=== PATIENT | female | born 1990 | race Caucasian/White ===

== ENCOUNTER 2024-04-18 09:42 | Outpatient (CLI) | payer OTHER, SELFPAY | END 2024-04-18 09:43 | disposition home or self-care (01) | PROVIDERS: Visit Provider Physician Assistant | DX: Z13.1 Encounter for screening for diabetes mellitus (principal); Z13.6 Encounter for screening for cardiovascular disorders | CPT/HCPCS: 80061; 82947 ==

== ENCOUNTER 2025-01-28 17:48 | Emergency (ER) | payer OTHER, SELFPAY ==
--- OUTSIDE RECORDS SUMMARY | 2025-01-28 17:49 | XMS_ITS | Clinical Summary ---
Author Organization [facility] Address [address], [place] [address] Care Team Providers Care Dental Equipment Technician Name Role Phone Unavailable Primary Care Provider Unavailabl e Source Comments You are receiving this document as you are listed as the primary care provider,follow-up provider, or the patient has been referred to you for consultation.This is in compliance with the Medicare and[facility] E[facility] Incentive Program,which states Providers who transition their patient to another setting of careor provider of care or refers their patient to another provider of care shouldprovide summary care record for each transition of care or referral. [facility] Allergies No known active allergies Medications Dextromethorphan-g uaiFENesin (ROBITUSSIN DM OR) A ctive Active Problems No known active problems Social History Tobacco Use Types Packs/Day Years Used Date Smoking Tobacco: Never Smokeless Tobacco: Never Comments Unknown Sex and Gender Information Value Date Recorded Sex Assigned at Not on file Legal Sex Female 10:16 AM CDT Gender Identity Not on file Sexual Orientation Not on file Last Filed Vital Signs Vital Sign Reading Time Taken Comments Blood Pressure 110/66 12/25/2020 10:34 AM CDT Pulse 115 12/25/2020 10:34 AM CDT Temperature 36.7 C (98.1 F) 12/25/2020 10:34 AM CDT Respiratory Rate 20 12/25/2020 10:34 AM CDT Oxygen Saturation 100% 12/25/2020 10:34 AM CDT Inhaled Oxygen Concentration - - Weight - - Height - - Body Mass Index - - Plan of Treatment Health Maintenance Due Date Last Done Comments Cervical Cancer Screening Due 1991 Hep C Screening (Preventive Services) 1991 HIV Screening (Preventive Services) 2007 Adult Preventive Visit 2009 DTaP/Tdap/Td Vaccine (1 - Tdap) 2010 HepB Vaccine (1) 2010 HPV Vaccine (1 - 3-dose SCDM series) 2018 COVID-19 Vaccine (1 - 2023-2 5 season) 2025 Influenza Vaccine (#1) 2025 Zoster/Shingles Vaccine (1 of 2) 2041 HepA Vaccine Aged Out No longer eligi ble based on patient's age to complete this topic Hib Vaccine Aged Out No longer eligi ble based on patient's age to complete this topic IPV (Polio) Vaccine Aged Out No longe r eligible based on patient's age to complete this topic MCV4 Vaccine Aged Out No longer eligi ble based on patient's age to complete this topic Meningococcal B Vaccine Aged Out No l onger eligible based on patient's age to complete this topic Pneumococcal Vaccine Aged Out No long er eligible based on patient's age to complete this topic Insurance [facility] [place] [id number]
--- OUTSIDE RECORDS SUMMARY | 2025-01-28 17:49 | XMS_ITS | Clinical Summary ---
Author Organization [facility] Address [address] [place] [id number] Care Team Providers Care Header Operator Name Role Phone No Ref-Primary, Physician Primary Care Provider Allergies No known active allergies Social History Tobacco Use Types Packs/Day Years Used Date Smoking Tobacco: Never Assessed Adolescent Education Answer Date Record ed Getting School Help Needed Not on file 02/14 Comments Unknown Sex and Gender Information Value Date Recorded Sex Assigned at Not on file Legal Sex Female 12:59 PM CDT Gender Identity Not on file Sexual Orientation Not on file Last Filed Vital Signs Vital Sign Reading Time Taken Comments Blood Pressure 110/68 12/25/2020 5:00 PM CDT Pulse 98 12/25/2020 1:07 PM CDT Temperature 36.9 C (98.4 F) 12/25/2020 1:07 PM CDT Respiratory Rate 16 12/25/2020 1:07 PM CDT Oxygen Saturation 100% 12/25/2020 5:07 PM CDT Inhaled Oxygen Concentration - - Weight 70 kg (154 lb 5.2 oz) 12/25/2020 1:07 PM CDT Height - - Body Mass Index - - Plan of Treatment Not on file Insurance [employer] OUT OF STATE Care Teams Header Operator Relationship Specialty Start Date End Date No Ref-Primary, Physician PCP - General 12/25/20
[2025-01-28 18:18] VITALS: BP 122/82; PULSE 90; RESP 20; TEMP 36.6; O2SAT 98; BMI 20.1
--- NOTE | 2025-01-28 19:41 | ED.GENADULT ---
HPI - General Adult General Chief complaint: Abdominal Pain Stated complaint: chest pain and chills Time Seen by Provider: 01/28/25 19:40 History of Present Illness HPI narrative: Started feeling ill with chills and chest pain for the last couple of hours, right sided shoulder pain. Feeling like she needs to take deep breathes. In the last ten minutes hands have been feeling tingling and wanting to curl up. Also feels nauseated . Has been feeling fatigued. 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 35-year-old woman presenting to the emergency department with concern of chest pain. After eating admittedly too many homemade cookies and cookie dough began to have some chest discomfort which became more burning and spread in the chest and then also some pain began the right shoulder -- indicates deep in the shoulder. Abdominal pain does not seem to be the primary symptom. Did feel chilled. Subsequently began to feel tingling in cheeks jaw hands feet. Hands were curling up a little bit. Right now primary symptom is nausea. Deep breathing to try to deal with. Has been struggling with good deal of stress lately. Fatigued due to not sleeping. Was otherwise prior to this in usual state of health. Did not have cough or cold symptoms. No rashes. Later does recall that had similar symptoms though without the chest discomfort last week. Related Data Home Medications ?Medication ?Instructions ?Recorded ?Confirmed multivitamin (Daily Multi-Vitamin 1 tab PO QAM 01/19/24 01/19/24 tablet) Allergies Allergy/AdvReac Type Severity Reaction Status Date / Time No Known Allergies Allergy Unknown Verified 01/28/25 18:25 Review of Systems Status of ROS: Reports: 6 or more systems reviewed and unremarkable except as noted in History and below [facility] Medical History Uterovaginal prolapse ?N81.4 - Uterovaginal prolapse, unspecified (ICD-10) Normal spontaneous vaginal delivery ?O80 - Encounter for full-term uncomplicated delivery (ICD-10) Family History Maternal Grandfather Heart disease Father Hodgkin lymphoma Aunt FH: mental illness Mother Osteoporosis Social History Narrative: [id number] mom 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 Nonsmoker No alcohol use What is your current living situation?: I presently have a place to live Problems where you live: lead paint or pipes and no known problems In the past 12 months, utilities in danger of being shut off: no In past 12 months, lack of transportation kept you from medical appts, meetings, work, or getting things needed for daily living: no In the past 12 mos, have been you worried that your food would run out before you had money to buy more?: never true In the past 12 mos, the food you bought just didn't last and you didn't have money to buy more?: never true Smoking Status: Never smoker How often does anyone, including family, friends and others, physically hurt you: never How often does anyone, including family, friends and others, insult or talk down to you: never How often does anyone, including family, friends and others, threaten you with harm: never How often does anyone, including family, friends and others, scream or curse at you: never Health Related Social Needs: Inadequate housing (Z59.1) Exam Narrative: Exam Narrative: Pleasant. Seems a little nervous. She is breathing deeply focused often with her eyes closed. Cranial nerves 2-12 are intact. Moving all extremities without difficulty. No lower extremity edema. Well-perfused peripherally. Lungs are clear. Heart in elevated rate regular rhythm. Abdomen is flat soft and nontender. Not really able to reproduce her chest discomfort. Const: Vital Signs, click to edit/add: Vital Signs - 24 hr 01/28/25 18:18 Temperature 97.8 F Pulse Rate [Pulse Oximeter] 90 Respiratory Rate 20 Blood Pressure [Ri ght Upper Arm] 122/82 Pulse Oximetry 98 Oxygen Delivery Me thod Room Air Documenting provider has reviewed patient's vital signs: yes Course Vital Signs Vital signs: Initial Vital Signs Temperature 97.8 F 01/28/25 18:18 Temperature Source Temporal Artery Scan 01/28/25 18:18 Pulse Rate 90 01/28/25 18:18 Respiratory Rate 20 01/28/25 18:18 Blood Pressure 122/82 01/28/25 18:18 Blood Pressure Mean 95 01/28/25 18:18 Blood Pressure Position Sitting 01/28/25 18:18 Pulse Oximetry 98 01/28/25 18:18 Oxygen Delivery Method Room Air 01/28/25 18:18 Vital Signs Temperature 97.8 F 01/28/25 18:18 Pulse Rate 90 01/28/25 18:18 Respiratory Rate 20 01/28/25 18:18 Blood Pressure 122/82 01/28/25 18:18 Pulse Oximetry 98 01/28/25 18:18 Oxygen Delivery Method Room Air 01/28/25 18:18 Temperature 97.8 F 01/28/25 18:18 Pulse Rate 90 01/28/25 18:18 Respiratory Rate 20 01/28/25 18:18 Blood Pressure 122/82 01/28/25 18:18 Pulse Oximetry 98 01/28/25 18:18 Oxygen Delivery Method Room Air 01/28/25 18:18 Medications Administered Medications: Discontinued Medications Generic Name Dose Route Start Last Admin Trade Name Freq PRN Reason Stop Dose Admin Lidocaine/Aluminum/Magnesium/Simeth 30 ml 01/28/25 20:56 01/28/25 21:30 Gi Cocktail (Visc Lido/Antacid) 30 Ml PO 01/28/25 20:57 30 ml ONCE ONE Administration Ondansetron HCl 4 mg 01/28/25 19:52 01/28/25 20:05 Ondansetron Odt 4 Mg Tab PO 01/28/25 19:53 4 mg ONCE ONE Administration Medical Decision Making MDM Narrative Medical decision making narrative: Differential includes coronary artery disease, mi, pulmonary embolus, vascular dissection, GERD, biliary colic, exacerbation of anxiety among other considerations. Does not have significant family history suggest cardiac disease nor history does suggest that vascular dissection would be likely. Symptoms seem atypical for embolus of. Would suspect some degree of dyspepsia. Body habitus in history would not suggest biliary colic neither does physical exam. Whether not this may have been the primary cause, has some degree of anxiety symptoms likely secondary to hyperventilation including carpal spasm. Discussed monitoring on quality assurance monitor final and checking standard labs. Initial EKG as below does not show ischemic changes or changes to suggest underlying arrhythmia. She would like a medication for nausea as this seems to be the major symptom yet. Initial round of labs reassuring including troponin. Potassium little bit low but may have been related to hyperventilation. Zofran was definitely helpful. Decided also to yet treat with GI cocktail with consideration yet of lorazepam; Jeri decided to proceed with just the GI cocktail. Symptoms have settled a little further on reassessment. No further events during monitoring in the emergency department. See patient discharge plan for further discussion I am happy you are feeling a little bit better. Labs and EKG are reassuring. You might consider taking famotidine 20-40 mg daily over the next week or 2. Seems like some of your symptoms might have been related to some dyspepsia. Even if anxiety was playing a role in some of your presentation here today, for marked increase in chest pain accompanied by shortness of breath or lightheadedness or nausea or sweats, would return for re-evaluation. Medical Records Medical records reviewed: Yes I reviewed the patient's medical records Lab Data Lab results reviewed: Yes I reviewed the patient's lab results Labs: Lab Results 01/28/25 Range/Units 20:03 Hgb 13.2 (12.0-16.0) gm/dL Sodium 138 (135-149) mmol/L Potassium 3.3 L (3.6-5.1) mmol/L Chloride 104 (96-114) mmol/L Carbon Dioxide 23 (20-32) mmol/L Anion Gap 11 (7-15) mEq/L BUN 12 (5-24) mg/dL Creatinine 0.7 (0.5-1.5) mg/dL Estimated Creat Clear 113.52 Estimated GFR 116 ml/min Glucose 138 H (60-115) mg/dL Calcium 9.5 (8.4-10.6) mg/dL ECG Data Attestation: I personally reviewed and interpreted this ECG as follows: (Normal sinus rhythm. Rate of 83. Appears to be some baseline irritability) Discharge Plan Discharge Clinical Impression: Atypical chest pain, Other social stressor Patient Disposition: Home w/ Parent or Adult Condition: Improved Additional Instructions: I am happy you are feeling a little bit better. Labs and EKG are reassuring. You might consider taking famotidine 20-40 mg daily over the next week or 2. Seems like some of your symptoms might have been related to some dyspepsia. Even if anxiety was playing a role in some of your presentation here today, for marked increase in chest pain accompanied by shortness of breath or lightheadedness or nausea or sweats, would return for re-evaluation. Prescriptions: No Action multivitamin [Daily Multi-Vitamin] Tablet 1 tab PO QAM Follow Up/Referrals: Provider,Not a Local [Primary Care Provider, Family Practice] Stand Alone Forms: Cognitive Code Info Instructions
[2025-01-28] MEDS: ONDANSETRON ODT 4 MG TAB PO (20:05)
[2025-01-28 20:12] LABS: Hemoglobin* 13.2 gm/dL (12.0-16.0)
[2025-01-28 20:25] LABS: Chloride* 104 mmol/L (96-114)
[2025-01-28 20:26] LABS: Potassium* 3.3 mmol/L (3.6-5.1); Sodium* 138 mmol/L (135-149)
[2025-01-28 20:28] LABS: Blood Urea Nitrogen* 12 mg/dL (5-24); Creatinine* 0.7 mg/dL (0.5-1.5); Est. Creatinine Clearance* 113.52; Estimated Glomerular Filt Rate 116 ml/min
[2025-01-28 20:29] LABS: Anion Gap 11 mEq/L (7-15); Calcium* 9.5 mg/dL (8.4-10.6); Carbon Dioxide* 23 mmol/L (20-32); Glucose* 138 mg/dL (60-115)
[2025-01-28] MEDS: GI COCKTAIL (VISC LIDO/ANTACID) 30 ML PO (21:30)
[2025-01-28 21:50] VITALS: BP 118/68; PULSE 78; RESP 14; O2SAT 99
--- NOTE | 2025-01-28 22:15 | PC.NURSE ---
pt feeling somewhat better after GI cocktail, wished to discharge home at this time
[2025-02-10 10:45] LABS: Troponin, Point-of-Care* 0.00 ng/ml (0.01-0.04)
== END 2025-01-28 22:15 | disposition home or self-care (01) ==
PROVIDERS: Emergency Provider Family Medicine
DX: R07.9 Chest pain, unspecified (principal)
CPT/HCPCS: 36415; 80048; 84484; 85018; 93005; 99284; A9270

== ENCOUNTER 2025-01-30 18:15 | Outpatient (CLI) | payer OTHER, SELFPAY | END 2025-01-30 18:16 | disposition home or self-care (01) | LOC: NFLDREF 18:16 | PROVIDERS: Visit Provider Physician Assistant | DX: E03.9 Hypothyroidism, unspecified (principal) | CPT/HCPCS: 84443 ==